=== PATIENT | female | born 1970 | race Caucasian/White ===

== ENCOUNTER 2016-12-30 15:41 | Emergency (ER) | payer SELFPAY ==
[~2016-12-30] VITALS: Wt 60.0 kg
[~2016-12-30 15:41] MED LIST: ESTR5VIA IM
[2016-12-30] MEDS ORDERED: ACETAMINOPHEN 500 MG TAB PO STA (18:10)
--- NOTE | 2016-12-30 19:06 | RADRPT ---
PROCEDURE: US Pelvis. CLINICAL INDICATION: Abdominal pain. TECHNIQUE: Multiple sonographic images of the pelvis were obtained utilizing a transabdominal bia hnique. The images were reviewed on a PACS workstation. COMPARISON: No. FINDINGS: The uterus is visualized and measures 7.7 cm sagittal by 3.7 cm AP by 4.9 cm transverse. The endomet rial echo complex is normal and measures 4.8 mm. There is no evidence for free fluid. Is not visuali zed. The left ovary has a normal echotexture and measures 2.6 x 4.6 x 3.2 cm. There is a benign le ft ovarian cyst measuring 2.6 x 2.2 x 2 cm. No adnexal masses are noted. No free fluid is noted in the pelvis. IMPRESSION: 1. 2.6 x 2.2 x 2 cm benign left ovarian cyst. 2. Otherwise unremarkable pelvic none OB sonogram. The right ovary was not visualized. RPTAT:AAJJ Physician Farzad Date Time Electronically viewed and signed by Physician Farzad on 12/30/2016 19:05 GRAEME/
[2016-12-30 19:52] LABS: BASOPHILS % 0.5 % (0.0-2.0); EOSINOPHILS # 0.2 10^3/ul (0.0-0.5); EOSINOPHILS % 3.8 % (0.0-7.0); HEMATOCRIT 39.5 % (37.0-47.0); HEMOGLOBIN 13.1 g/dl (12.0-16.0); LYMPHOCYTES # 2.1 10^3/ul (0.8-2.9); LYMPHOCYTES % 31.9 % (15.0-51.0); MEAN CORPUSCULAR HEMOGLOBIN 28.5 pg (29.0-33.0); MEAN CORPUSCULAR HGB CONC 33.1 g/dl (32.0-37.0); MEAN CORPUSCULAR VOLUME 86.1 fl (82.0-101.0); MEAN PLATELET VOLUME 7.5 fl (7.4-10.4); MONOCYTE # 0.6 10^3/ul (0.3-0.9); MONOCYTES % 8.9 % (0.0-11.0); NEUTROPHIL # 3.6 10^3/ul (1.6-7.5); NEUTROPHILS % 54.9 % (39.0-77.0); PLATELET COUNT 366 10^3/UL (140-440); RED BLOOD COUNT 4.59 10^6/ul (4.20-5.40); RED CELL DISTRIBUTION WIDTH 13.3 % (11.5-14.5); UNCORRECTED WBC 6.5 10^3/ul (4.8-10.8); WHITE BLOOD COUNT 6.5 10^3/ul (4.8-10.8)
[2016-12-30 19:54] LABS: CONDITION 1
[2016-12-30 19:58] LABS: ALBUMIN 3.5 g/dl (3.3-4.9)
[2016-12-30 19:59] LABS: POTASSIUM 4.3 mmol/L (3.5-5.1)
[2016-12-30 20:01] LABS: ALBUMIN/GLOBULIN RATIO 1.06; BILIRUBIN,INDIRECT 0.2 mg/dl (0-1.1); BILIRUBIN,TOTAL 0.2 mg/dl (0.2-1.3); CREATININE 0.59 mg/dl (0.44-1.00); TOTAL PROTEIN 6.8 g/dl (6.1-8.1)
[2016-12-30 20:02] LABS: CALCIUM 8.7 mg/dl (8.4-10.2)
--- NOTE | 2016-12-30 20:06 | RADRPT ---
PROCEDURE: CT Abdomen and Pelvis without contrast. CLINICAL INDICATION: Abdominal pain TECHNIQUE: CT of the abdomen and pelvis was performed on a multi-detector scanner without IV contr ast. Coronal and sagittal images were reformatted from the axial data set. One or more of the foll owing dose reduction techniques were used: automated exposure control, adjustment of the mA and/or kV according to patient size, use of iterative reconstruction technique. CTDI = 5.63 mGy. DLP = 282 .92 mGy-cm. COMPARISON: Ultrasound, 12/30/2016 FINDINGS: CT abdomen: The lung bases are clear. The heart size is normal, without pericardial effusion. Liver, gallbladd er, biliary tree, pancreas, spleen and adrenal glands are unremarkable except for benign renal cysts . No urolithiasis or obstructive uropathy is identified. The stomach is grossly unremarkable. The aorta is of normal caliber. There is no retroperitoneal lymphadenopathy. The arsenio hepatis reg ion is clear. CT pelvis: No bowel obstruction, free intraperitoneal air or abscess is identified. Mild retained fecal materi al may indicate constipation. The appendix is well visualized and normal. There is no diverticulos is, diverticulitis or colitis. Urinary bladder, uterus and right adnexa are grossly unremarkable. 2.7 cm cystic structure is identified in the left adnexa (3-121). No solid pelvic mass, free fluid or lymphadenopathy is identified. The surrounding osseous structures are remarkable for mild degenerative spondylosis of the spine. N o osteolytic or osteoblastic lesion is detected. IMPRESSION: 1. 2.7 cm cystic structure is seen in the left adnexa, corresponding to left ovarian cyst seen on u ltrasound performed the same day. 2. Mild retained fecal material may indicate constipation. 3. No solid mass, lymphadenopathy or acute inflammatory process is identified. RPTAT: HH .Rodo Noyola MD, MD Date Time Electronically viewed and signed by .Rodo Noyola MD, on 12/30/2016 20:06 .R/
[2016-12-30] MEDS ORDERED: POLY17PO6 PO (20:17)
[2016-12-30] MEDS ORDERED: NAPR-260 PO (20:18)
--- NOTE | 2016-12-30 20:39 | ERD ---
ER Documentation Chief Complaint Date/Time DATE: 12/30/16 TIME: 20:32 Chief Complaint leg pain and dysuria at this time. pt has lower abd pain no vag bleed HPI Patient is a 46-year-old female who presents to the ED with multiple complaints. She complains of abdominal pain and distention. She states that her last bowel movement was 2 days ago. She does not have a history of constipation and feels very bloated. She denies nausea, vomiting or diarrhea. Denies focal tenderness. She also complains of pelvic pain bilateral. She complains of "hot urine." Denies abnormal vaginal discharge. She is not sexually active. She also complains of pain in her right buttock that radiates down her right leg to her knee. She has a history of sciatica and states that this is similar to the pain she has had in the past. Denies weakness, saddle anesthesia, bowel or bladder incontinence. Denies chest pain, cough, shortness of breath or difficulty breathing. Denies headache or dizziness. Denies leg pain or swelling, recent travel. ROS All systems reviewed and are negative except as per history of present illness. Medications Home Meds Active Scripts Naproxen* (Naprosyn*) 500 Mg Tablet, 500 MG PO BID Y for PAIN AND/OR INFLAMMATION, #30 TAB Prov:MINH BENDER PA-C 12/30/16 Polyethylene Glycol* (Miralax*) 17 Gm Powd.pack, 17 GM PO BID, #60 PACKET Prov:MINH BENDER PA-C 12/30/16 Reported Medications Estradiol Cypionate* (Depo-Estradiol*) 5 Mg/Ml Vial, 5 MG IM, VIAL 03/12/14 Allergies Allergies: Coded Allergies: No Known Allergy (Unverified , 03/12/14) PMhx/Soc Medical and Surgical Hx: pt denies Medical Hx History of Surgery: Yes (C SECTION ) Anesthesia Reaction: No Hx Neurological Disorder: No Hx Respiratory Disorders: No Hx Cardiac Disorders: No Hx Psychiatric Problems: No Hx Miscellaneous Medical Probl: No Hx Alcohol Use: No Hx Substance Use: No Hx Tobacco Use: No Smoking Status: Never smoker FmHx Family History: No coronary disease, No diabetes, No other Physical Exam Vitals Vital Signs Date Time Temp Pulse Resp B/P Pulse Ox O2 Delivery O2 Flow Rate FiO2 12/30/16 16:09 98.6 78 20 130/73 95 Physical Exam GENERAL: Well-developed, well-nourished female. Appears in no acute distress. HEAD: Normocephalic, atraumatic. NECK: Supple. No lymphadenopathy or thyromegaly. No meningismus. negative kernig. negative brudinski. LUNG: Clear to auscultation bilaterally. No rhonchi, wheezing, rales or coarse breath sounds. HEART: Regular rate and rhythm. No murmurs, rubs or gallops. ORTHO: tenderness in right buttock near sciatic nerve ABDOMEN: No scars, ecchymosis or rashes noted. Soft, nontender, and nondistended. Positive bowel sounds in all four quadrants. No rebound tenderness , no guarding. (-) McBurneys point tenderness. No CVA tenderness. no distention. tenderness in suprapubic tenderness. pelvic tenderness. no CMT NEUROLOGIC: Alert and oriented. Moving all four extremities. 5/5 strength in all extremities. Normal speech. Steady gait. SKIN: Normal color. Warm and dry. No rashes or lesions. Capillary refill < 2 seconds Result Diagram: 12/30/16 1735 12/30/16 1735 Results 24 hrs Laboratory Tests Test 12/30/16 17:35 12/30/16 21:00 Alanine Aminotransferase (ALT/SGPT) 20IU/L Albumin 3.5g/dl Albumin/Globulin Ratio 1.06 Alkaline Phosphatase 95IU/L Anion Gap 15 Aspartate Amino Transf (AST/SGOT) 17IU/L Basophils # 0.010^3/ul Basophils % 0.5% Blood Morphology Comment Blood Urea Nitrogen 12mg/dl Calcium Level 8.7mg/dl Carbon Dioxide Level 27mmol/L Chloride Level 103mmol/L Creatinine 0.59mg/dl Direct Bilirubin 0.00mg/dl Eosinophils # 0.210^3/ul Eosinophils % 3.8% Globulin 3.30g/dl Glucose Level 100mg/dl Hematocrit 39.5% Hemoglobin 13.1g/dl Indirect Bilirubin 0.2mg/dl Lipase 116U/L Lymphocytes # 2.110^3/ul Lymphocytes % 31.9% Mean Corpuscular Hemoglobin 28.5pg Mean Corpuscular Hemoglobin Concent 33.1g/dl Mean Corpuscular Volume 86.1fl Mean Platelet Volume 7.5fl Monocytes # 0.610^3/ul Monocytes % 8.9% Neutrophils # 3.610^3/ul Neutrophils % 54.9% Nucleated Red Blood Cells # 0.010^3/ul Nucleated Red Blood Cells % 0.0/100WBC Platelet Count 97324^3/UL Potassium Level 4.3mmol/L Red Blood Count 4.5910^6/ul Red Cell Distribution Width 13.3% Sodium Level 141mmol/L Total Bilirubin 0.2mg/dl Total Protein 6.8g/dl White Blood Count 6.510^3/ul Urine Bilirubin NEGATIVE Urine Clarity CLEAR Urine Color LT. YELLOW Urine Glucose NEGATIVE% Urine Hemoglobin NEGATIVE Urine Ketones NEGATIVE Urine Leukocyte Esterase NEGATIVE Urine Nitrite NEGATIVE Urine Specific [place] <=1.005 Urine Total Protein NEGATIVE Urine Urobilinogen 0.2 E.U./dL Urine pH 5.5 Current Medications Medications (Trade) Dose Ordered Sig/Heri Route PRN Reason Start Time Stop Time Status Last Admin Dose Admin Acetaminophen (Tylenol Tab) 1,000 mg ONCE STAT PO 12/30/16 18:10 12/30/16 18:14 DC 12/30/16 19:17 Procedures/MDM ER COURSE: I kept the patient and/or family informed of laboratory and diagnostic imaging results throughout the emergency room course. EKG, MONITORS, & DIAGNOSTIC IMAGING: [place] [id number] Radiology Main Line: [phone] DIAGNOSTIC IMAGING REPORT Patient: OBI MACKAY : 1970 Age: 46 Sex: F MR #: [id number] DOS: 12/30/16 1810 Ordering MD: MINH BENDER PA-C Location: [facility] Room/Bed: PROCEDURE: CT Abdomen and Pelvis without contrast. CLINICAL INDICATION: Abdominal pain TECHNIQUE: CT of the abdomen and pelvis was performed on a multi-detector scanner without IV contrast. Coronal and sagittal images were reformatted from the axial data set. One or more of the following dose reduction techniques were used: automated exposure control, adjustment of the mA and/or kV according to patient size, use of iterative reconstruction technique. CTDI = 5.63 mGy. DLP = 282.92 mGy-cm. COMPARISON: Ultrasound, 12/30/2016 FINDINGS: CT abdomen: The lung bases are clear. The heart size is normal, without pericardial effusion. Liver, gallbladder, biliary tree, pancreas, spleen and adrenal glands are unremarkable except for benign renal cysts. No urolithiasis or obstructive uropathy is identified. The stomach is grossly unremarkable. The aorta is of normal caliber. There is no retroperitoneal lymphadenopathy. The arsenio hepatis region is clear. CT pelvis: No bowel obstruction, free intraperitoneal air or abscess is identified. Mild retained fecal material may indicate constipation. The appendix is well visualized and normal. There is no diverticulosis, diverticulitis or colitis. Urinary bladder, uterus and right adnexa are grossly unremarkable. 2.7 cm cystic structure is identified in the left adnexa (3-121). No solid pelvic mass , free fluid or lymphadenopathy is identified. The surrounding osseous structures are remarkable for mild degenerative spondylosis of the spine. No osteolytic or osteoblastic lesion is detected. IMPRESSION: 1. 2.7 cm cystic structure is seen in the left adnexa, corresponding to left ovarian cyst seen on ultrasound performed the same day. 2. Mild retained fecal material may indicate constipation. 3. No solid mass, lymphadenopathy or acute inflammatory process is identified. RPTAT: HH .Rodo Noyola MD, Date Time Electronically viewed and signed by .Rodo Noyola MD, MD on 12/30/2016 20: 06 .R/ CC: MINH BENDER PA-C [place] [address] Radiology Main Line: [phone] DIAGNOSTIC IMAGING REPORT Patient: OBI MACKAY : 1970 Age: 46 Sex: F MR #: [id number] DOS: 12/30/16 1810 Ordering MD: MINH BENDER PA-C Location: [facility] Room/Bed: PROCEDURE: US Pelvis. CLINICAL INDICATION: Abdominal pain. TECHNIQUE: Multiple sonographic images of the pelvis were obtained utilizing a transabdominal technique. The images were reviewed on a PACS workstation. COMPARISON: No. FINDINGS: The uterus is visualized and measures 7.7 cm sagittal by 3.7 cm AP by 4.9 cm transverse. The endometrial echo complex is normal and measures 4.8 mm. There is no evidence for free fluid. Is not visualized. The left ovary has a normal echotexture and measures 2.6 x 4.6 x 3.2 cm. There is a benign left ovarian cyst measuring 2.6 x 2.2 x 2 cm. No adnexal masses are noted. No free fluid is noted in the pelvis. IMPRESSION: 1. 2.6 x 2.2 x 2 cm benign left ovarian cyst. 2. Otherwise unremarkable pelvic none OB sonogram. The right ovary was not visualized. RPTAT:AAJJ Physician Farzad Date Time Electronically viewed and signed by Jake Quiros Physician on 12/30/2016 19:05 JM/ CC: MINH BENDER PA-C MEDICATIONS: 1 g Tylenol. Patient told medication well with no adverse reaction. Patient seen improvement in symptoms. LAB INTERPRETATION: CBC showed no evidence of systemic infection or severe anemia. CMP showed no evidence of electrolyte abnormalities, severe acidosis, alkalosis, renal failure , or liver disease. Lipase showed no evidence of acute pancreatitis. UA showed no evidence of leukocytes, nitrites or hematuria. Urine test was negative. MEDICAL DECISION MAKING: This is a 46-year-old female who presents with abdominal pain, constipation and pelvic pain, sciatica. Vital signs were reviewed. Patient is afebrile. Patient is not hypoxic. Patient likely has sciatica. Low suspicion for dislocation, fracture, septic joint, compartment syndrome, osteomyelitis, avascular necrosis , DVT, Achilles tendon rupture, cellulitis. At this time, unable to rule out any tendon and ligament injuries. I do not think any imaging studies is warranted at this time as this is not new onset pain and she does not have weakness. Her CT scan as read by radiologist shows a 2.7 cm cystic structure in the left adnexa corresponding to a left ovarian cyst. She has mild retained fecal material that indicates constipation. No solid mass, lymphadenopathy or acute inflammatory process is identified. Her pelvic ultrasound is read by radiologist shows a 2.6 x 2.2 x 2 cm benign left ovarian cyst. Low suspicion for ovarian torsion, PID, tuboovarian abscess, ectopic , bowel obstruction, pyelonephritis, UTI, appendicitis, cervicitis, septic , molar , HELLP syndrome, preeclampsia, eclampsia, placenta previa, placenta abruptia. She also likely has constipation. Low suspicion for ACS, AAA, perforated ulcer , bowel obstruction, cholecystitis, choledocholithiasis, cholangitis, pancreatitis, hepatic abscess, appendicitis, diverticulitis, gastroenteritis, hepatitis, peptic ulcer disease, HELLP syndrome. DISCHARGE: At this time, patient is stable for discharge and outpatient management with no new complaints during the ER course. Patient was sent home with naproxen, miralax. Patient will be discharged home with instructions to recheck for new or worsening symptoms such as fever, nausea, weakness, LOC and to follow up with primary care in the next 1-2 days. Patient was advised to return to the ER for any new or worsening symptoms. Plan was discussed and patient and/or family understands and agrees. Home instructions were given. Departure Diagnosis: Primary Impression: Sciatica Laterality: right Qualified Code: M54.31 - Sciatica of right side Additional Impression: Constipation Constipation type: unspecified constipation type Qualified Code: K59.00 - Constipation, unspecified constipation type Condition: Stable Patient Instructions: Constipation (Adult) Additional Instructions: Llame al doctor MAANA y salvatore zelalem MALU PARA DENTRO DE 1-2 ROSEN.Dgale a la secretaria que nosotros le instruimos hacer esta malu.Avise o llame si rosario condicin se empeora antes de la malu. Regresa aqui si peor o no mejor. MINH BENDER PA-C Dec 30, 2016 20:39
[2016-12-30 21:30] LABS: ADD UMIC NO; URINE BILIRUBIN (Dip) NEGATIVE (NEGATIVE); URINE BLOOD (Dip) NEGATIVE (NEGATIVE); URINE COLOR LT. YELLOW (YELLOW); URINE GLUCOSE (Dip) NEGATIVE (NEGATIVE); URINE KETONES (Dip) NEGATIVE (NEGATIVE); URINE LEUKOCYTE ESTERASE (Dip) NEGATIVE (NEGATIVE); URINE NITRITE (Dip) NEGATIVE (NEGATIVE); URINE TOTAL PROTEIN (Dip) NEGATIVE (NEGATIVE); URINE UROBILINOGEN (Dip) 0.2 E.U./dL (0.1-1.0)
[2016-12-30 22:10] VITALS: BP 120/58; PULSE 68; RESP 16; TEMP 97.7
== END 2016-12-30 22:10 | disposition home or self-care (01) ==
LOC: FTE 15:41
DX: M54.31 Sciatica, right side (principal); K59.00 Constipation, unspecified; R10.2 Pelvic and perineal pain
CPT/HCPCS: 74176; 76856; 80053; 81003; 83690; 85025

== ENCOUNTER 2017-10-01 19:45 | Emergency (ER) | payer MEDICAID ==
[~2017-10-01] VITALS: Ht 152.4 cm; Wt 51.6 kg
[~2017-10-01 19:45] MED LIST changes: +NAPR-260 PO; +POLY17PO6 PO
[2017-10-01 19:54] VITALS: Ht 152.4 cm; Wt 51.6 kg
--- NOTE | 2017-10-01 21:51 | RADRPT ---
PROCEDURE: CT Brain without contrast. CLINICAL INDICATION: Trauma. Pain. TECHNIQUE: Serial axial computed tomographic images of the brain was performed on a CT scanner fro m the skull base through the vertex without contrast. One of the following 3 dose reduction techniq ues were used: Automated exposure control; adjustment of the mA and/or kV according to patient size; or use of iterative reconstruction technique. CTDlvol = 44 mGy and DLP = 720 mGy-cm. COMPARISON: None available. FINDINGS: There is right frontal subcutaneous soft tissue swelling without an underlying fracture. The ventri cles and sulci are normal in size and configuration. There is no midline shift. There are no focal parenchymal abnormalities. There is no acute stroke. No acute intracranial hemorrhage or abnormal extra-axial fluid collection. Visualized paranasal sinuses are clear. IMPRESSION: 1. No acute intracranial post-traumatic abnormality. 2. Right frontal subcutaneous soft tissue swelling without an underlying fracture. RPTAT: HMVK .Walter Colón MD, Date Time Electronically viewed and signed by .Walter Colón MD, MD on 10/01/2017 21:51 .K/
--- NOTE | 2017-10-01 21:59 | RADRPT ---
PROCEDURE: CT scan facial bones CLINICAL INDICATION: Trauma. Pain. TECHNIQUE: CT scan of the face was performed on a multidetector CT scanner. Coronal and sagittal reformatted images were obtained from the axial source images. Exam CTDlvol = 29 mGy d DLP = 495 Gy -cm. One of the following 3 dose reduction techniques were used: Automated exposure control; adjust ment of the mA and/or kV according to patient size; or use of iterative reconstruction technique. COMPARISON: None.. FINDINGS: There is right frontal subcutaneous soft tissue swelling/hemorrhage. There is no underlying fractur e. The facial bones, orbits and mandible are intact without a fracture. The orbital contents are unremarkable. Nasal septum is deviated to the right of midline. The zygomatic arches are symmetric ally normal. The paranasal sinuses are clear. There is no air-fluid level. There are degenerativ e changes of the bilateral temporomandibular joints. IMPRESSION: Right frontal subcutaneous soft tissue swelling without underlying fracture. RPTAT: HMVK .Walter Colón MD, MD Date Time Electronically viewed and signed by .Walter Colón MD, MD on 10/01/2017 21:59 .K/
--- NOTE | 2017-10-01 22:00 | ERD ---
ER Documentation Chief Complaint Chief Complaint fell from stairs yesterday, c/o pain/swelling right forehead. no ko HPI 39-year-old female presents with right-sided facial and head pain after she fell while coming downstairs yesterday hit her head. She did not lose consciousness. No nausea vomiting dizziness photosensitivity or changes in her vision. She states yesterday she had no pain but today she has moderate pain on the right upper side of her face as well as swelling to that side. She has not taken any medications for pain. She is not on any blood thinning medications. ROS All systems reviewed and are negative except as per history of present illness. Medications Home Meds Active Scripts Ibuprofen* (Motrin*) 600 Mg Tab, 600 MG PO Q6, #30 TAB Prov:ROSELIA MORRIS PA-C 10/01/17 Naproxen* (Naprosyn*) 500 Mg Tablet, 500 MG PO BID Y for PAIN AND/OR INFLAMMATION, #30 TAB Prov:MINH BENDER PA-C 12/30/16 Polyethylene Glycol* (Miralax*) 17 Gm Powd.pack, 17 GM PO BID, #60 PACKET Prov:MINH BENDER PA-C 12/30/16 Reported Medications Estradiol Cypionate* (Depo-Estradiol*) 5 Mg/Ml Vial, 5 MG IM, VIAL 03/12/14 Allergies Allergies: Coded Allergies: No Known Allergy (Unverified , 10/01/17) PMhx/Soc Medical and Surgical Hx: pt denies Medical Hx History of Surgery: Yes (C SECTION ) Anesthesia Reaction: No Hx Neurological Disorder: No Hx Respiratory Disorders: No Hx Cardiac Disorders: No Hx Psychiatric Problems: No Hx Miscellaneous Medical Probl: No Hx Alcohol Use: No Hx Substance Use: No Hx Tobacco Use: No Smoking Status: Never smoker FmHx Family History: No diabetes Physical Exam Vitals Vital Signs Date Time Temp Pulse Resp B/P Pulse Ox O2 Delivery O2 Flow Rate FiO2 10/01/17 19:54 98.1 92 20 161/84 100 Physical Exam INITIAL VITAL SIGNS: Reviewed by me GENERAL: Awake, alert and oriented x 4, well appearing, nontoxic, speaking in full sentences. No acute distress HEAD: Atraumatic NECK: Supple. No masses. Full range of motion. No meningismus. No midline tenderness. EYES: EOMI. PERRL. NOSE: Normal nose. THROAT: No tonilar erythema or edema. No exudates. Uvula midline. No kissing tonsils. RESPIRATORY: Clear to auscultation bilaterally. Symmetric chest wall rise. No wheezing or rales. No accessory muscle use. CV: Regular rate and rhythm. No murmurs, rubs, or gallops. NEUROLOGIC: Normal mental status and speech. Face is symmetric. Moves all extremities equally. Motor and sensory distally intact. Normal coordination. Ambulates with a strong steady gait. Procedures/MDM Patient presents after head injury that occurred yesterday. She has no neck pain or cervical spine tenderness on exam and full range of motion in her neck. She did not lose consciousness and has had no nausea or vomiting or dizziness or photosensitivity or visual changes. Her neurological examination is normal. CT scan of the brain and face showed no acute intracranial pathology. Patient was discharged with ibuprofen for pain control. Patient counseled regarding my diagnostic impression and care plan. Prior to discharge all questions answered. Pt agrees with treatment plan and understands strict return precautions. Pt is instructed to follow up with primary care provider within 24- 48 hours. Precautionary instructions provided including instructions to return to the ER if not improving or for any worsening or changing symptoms or concerns. Departure Diagnosis: Primary Impression: Head injury Additional Impression: Facial contusion Condition: Stable ROSELIA MORRIS PA-C Oct 01, 2017 22:00
[2017-10-01] MEDS ORDERED: IBUP-1542 PO (22:01)
[2017-10-01 22:08] VITALS: BP 119/66; PULSE 70; RESP 18; TEMP 98.6
== END 2017-10-01 22:08 | disposition home or self-care (01) ==
LOC: FTE 19:45
DX: S00.83XA Contusion of other part of head, initial encounter (principal); W10.9XXA Fall (on) (from) unspecified stairs and steps, initial encounter; Y92.9 Unspecified place or not applicable
CPT/HCPCS: 70450; 70486; Z7502

== ENCOUNTER 2019-04-14 08:03 | Emergency (ER) | payer MEDICAID ==
[~2019-04-14] VITALS: Wt 80.0 kg
[~2019-04-14 08:03] MED LIST changes: +IBUP-1542 PO; -NAPR-260 PO; +NAPR-985 PO
[2019-04-14 08:05] VITALS: BP 140/64; PULSE 98; RESP 18; Wt 80.0 kg
[2019-04-14] MEDS ORDERED: ALBUTEROL 0.083% (NEB) 2.5 MG/3 ML AMP HHN STA (08:23)
[2019-04-14] MEDS ORDERED: DEXAMETHASONE 10 MG/ML 1 ML INJ IM ONE (08:30)
[2019-04-14] MEDS ORDERED: IPRATROPIUM (NEB) 0.5 MG/2.5 ML AMP HHN ONE (08:30)
[2019-04-14] MEDS ORDERED: BENZ-6 PO (08:47)
[2019-04-14] MEDS ORDERED: ALBU8.5H8 INH (08:47)
[2019-04-14] MEDS ORDERED: AZIT250T PO (08:47)
[2019-04-14] MEDS ORDERED: PROM6.2515 PO (08:47)
[2019-04-14] MEDS ORDERED: PSEU-79 PO (08:47)
--- NOTE | 2019-04-14 09:31 | ERD ---
ER Documentation Chief Complaint Chief Complaint COUGH, FLU, SINCE YESTERDAY, NASAL CONGESTION HPI 48-year-old female presenting with cough and congestion. Patient states is been going on since yesterday and she is unable to sleep due to the excessive nasal congestion. She is been taking Robitussin and NyQuil. Last dose of NyQuil taken 6 hours prior to my evaluation. Denies fevers. Denies medical problems. NKDA. Surgical history . Social history denies ROS All systems reviewed and are negative except as per history of present illness. Medications Home Meds Active Scripts Promethazine Hcl* (Promethazine Hcl* Syrup) 6.25 Mg/5 Ml Syrup, 6.25 MG PO Q6H PRN for COUGH, #100 ML Prov:MARIANA HILTON PA-C 04/14/19 Albuterol Sulfate* (Proair HFA*) 8.5 Gm Hfa.aer.ad, 2 PUFF INH Q4, #1 INHALER Prov:MARIANA HILTON PA-C 04/14/19 Benzonatate* (Tessalon Perle*) 100 Mg Capsule, 100 MG PO Q8H PRN for COUGH, #30 CAP Prov:MARIANA HILTON PA-C 04/14/19 Azithromycin* (Zithromax*) 250 Mg Tablet, 250 MG PO .ZPACK DIRECTED, #6 TAB TAKE 500 MG (2 TABS) THE FIRST DAY THEN 250 MG (1 TAB) DAYS 2-5 Prov:MARIANA HILTON PA-C 04/14/19 Pseudoephedrine Hcl* (Suphedrin*) 30 Mg Tablet, 30 MG PO Q6 PRN for CONGESTION, #30 TAB Prov:MARIANA HILTON PA-C 04/14/19 Ibuprofen* (Motrin*) 600 Mg Tab, 600 MG PO Q6, #30 TAB Prov:ROSELIA MORRIS PA-C 10/01/17 Naproxen* (Naprosyn*) 500 Mg Tablet, 500 MG PO BID PRN for PAIN AND/OR INFLAMMATION, #30 TAB Prov:MINH BENDER PA-C 12/30/16 Polyethylene Glycol* (Miralax*) 17 Gm Powd.pack, 17 GM PO BID, #60 PACKET Prov:MINH BENDER PA-C 12/30/16 Reported Medications Estradiol Cypionate* (Depo-Estradiol*) 5 Mg/Ml Vial, 5 MG IM, VIAL 03/12/14 Allergies Allergies: Coded Allergies: No Known Allergy (Unverified , 04/14/19) PMhx/Soc Medical and Surgical Hx: pt denies Medical Hx History of Surgery: Yes (c section x 1) Anesthesia Reaction: No Hx Neurological Disorder: No Hx Respiratory Disorders: No Hx Cardiac Disorders: No Hx Psychiatric Problems: No Hx Miscellaneous Medical Probl: No Hx Alcohol Use: No Hx Substance Use: No Hx Tobacco Use: No Smoking Status: Never smoker FmHx Family History: No diabetes, No coronary disease, No other Physical Exam Vitals Vital Signs Date Temp Pulse Resp B/P (MAP) Pulse Ox O2 O2 Flow FiO2 Time Delivery Rate 04/14/19 98 18 98 21 08:33 04/14/19 98.1 98 18 140/64 98 08:05 (89) Physical Exam GENERAL: The patient is well-appearing, well-nourished, in no acute distress HEENT: Atraumatic. Conjunctivae are pink. Pupils equal, round, and reactive to light. There is no scleral icterus. Tympanic membranes clear bilaterally. Oropharynx clear. Nasal congestion on exam NECK: C-spine is soft and supple. There is no meningismus. There is no cervical lymphadenopathy. CHEST: Coarse breath sounds heard to the left lung space. Wheezing heard th roughout. HEART: Regular rate and rhythm. No murmurs, clicks, rubs or gallops. No S3 or S4. Results 24 hrs Current Medications Medications Dose Sig/Heri Start Time Status Last (Trade) Ordered Route PRN Stop Time Admin Dose Reason Admin Albuterol 5 mg ONCE STAT 04/14/19 DC 04/14/19 (Proventil HHN 08:23 08:32 0.083% (Neb)) 04/14/19 08:26 Ipratropium 0.5 mg ONCE ONCE 04/14/19 DC 04/14/19 Naches HHN 08:30 08:32 (Atrovent 04/14/19 08:31 0.02% (Neb)) 10 mg ONCE ONCE 04/14/19 DC 04/14/19 Dexamethasone IM 08:30 08:28 (Decadron) 04/14/19 08:31 Procedures/MDM DIAGNOSTIC IMAGING REPORT Patient: OBI ESPINOZA : 1970 Age: 48 Sex: F MR #: [id number] DOS: 04/14/19 0823 Ordering MD: KAIA HILTON PA-C Location: [facility] Room/Bed: PROCEDURE: Single view chest. CLINICAL INDICATION: Cough TECHNIQUE: Single view of the chest was obtained COMPARISON: None FINDINGS: There is no airspace consolidation or focal infiltrate. No pleural effusion or pneumothorax. Cardiac silhouette and mediastinal contours are unremarkable. Pulmonary vasculature appears normal. Regional bones appear intact. IMPRESSION: No evidence of active cardiopulmonary disease. ER Course: Albuterol, atrovent, decadron given in ED MDM: 48 yr old female complaining of congestion and cough. Chest xray within normal limits but right lung space concerning for developing infection so I will treat with abx. I have low suspicion for respiratory distress of hypoxia. Patient discharged with supportive medication and told to follow up with PMD. Return to ER if symptoms change or worsen. All questions answered at discharge Departure Diagnosis: Primary Impression: Upper respiratory infection Condition: Stable Patient Instructions: Preventing Common Respiratory Infections Referrals: COMMUNITY CLINICS YOU HAVE RECEIVED A MEDICAL SCREENING EXAM AND THE RESULTS INDICATE THAT YOU DO NOT HAVE A CONDITION THAT REQUIRES URGENT TREATMENT IN THE EMERGENCY DEPARTMENT. FURTHER EVALUATION AND TREATMENT OF YOUR CONDITION CAN WAIT UNTIL YOU ARE SEEN IN YOUR DOCTORS OFFICE WITHIN THE NEXT 1-2 DAYS. IT IS YOUR RESPONSIBILITY TO MAKE AN APPOINTMENT FOR FOLOW-UP CARE. IF YOU HAVE A PRIMARY DOCTOR --you should call your primary doctor and schedule an appointment IF YOU DO NOT HAVE A PRIMARY DOCTOR YOU CAN CALL OUR PHYSICIAN REFERRAL HOTLINE AT IF YOU CAN NOT AFFORD TO SEE A PHYSICIAN YOU CAN CHOSE FROM THE FOLLOWING [facility] [address] [facility] [address] [facility] [address] [facility] [address] [facility]. [facility] [address]. [facility] [address] Additional Instructions: FOLLOW UP WITH YOUR PRIMARY CARE PHYSICIAN TOMORROW.Return to this facility if you are not improving as expected. MARIANA HILTON PA-C April 14, 2019 09:31
== END 2019-04-14 09:41 | disposition home or self-care (01) ==
LOC: FTE 08:03
DX: J06.9 Acute upper respiratory infection, unspecified (principal)
CPT/HCPCS: 71045; 94664; 96372; J1100; Z7502; Z7610